=== PATIENT | male | born 1980 | race Caucasian/White ===

== ENCOUNTER 2021-06-19 00:31 | Emergency (ER) | payer OTHER ==
[2021-06-19 01:39] LABS: BILIRUBIN NEGATIVE (NEGATIVE); BLOOD 3+ Ery/uL (NEGATIVE); CLARITY CLEAR (CLEAR); COLOR YELLOW (YELLOW); GLUCOSE (U) NORMAL (NORMAL); LEUKOCYTES NEGATIVE Leu/uL (NEGATIVE); NITRITE NEGATIVE (NEGATIVE); PROTEIN TRACE (LOW) mg/dL (NEGATIVE); SPECIFIC GRAVITY 1.025 (1.001-1.030); UROBILINOGEN 0.2 mg/dL (0.2-1.0); pH 5.5 (5.0-9.0)
[2021-06-19 01:44] LABS: URINARY RBC 20-50
[2021-06-19 01:45] LABS: BACTERIA TRACE; SQUAMOUS EPITHELIAL CELLS RARE; TRANSITIONAL EPITHELIAL CELLS RARE; URINARY WBC RARE
[2021-06-19] MEDS ORDERED: NAPROXEN500 MG PO (04:41)
[2021-06-19] MEDS ORDERED: ZOFRAN4 M1 PO (04:41)
[2021-06-19] MEDS ORDERED: FLOMAX0.4 MG PO (04:41)
[2021-06-19] MEDS ORDERED: NORCO 5-325 TA1 EACH PO (04:41)
== END 2021-06-19 04:57 | disposition home or self-care (01) ==
LOC: FER 00:31
PROVIDERS: Emergency Medicine
DX: N13.2 Hydronephrosis with renal and ureteral calculous obstruction (principal); J45.909 Unspecified asthma, uncomplicated
CPT/HCPCS: 81001